=== PATIENT | female | born 1990 | race African-American/Black ===

== ENCOUNTER 2019-05-12 19:30 | Emergency (ER) | payer SELFPAY ==
[~2019-05-12] VITALS: Ht 167.6 cm; Wt 75.0 kg
[2019-05-12] MEDS ORDERED: HYDROCODONE/ACETAMINOPHEN 5/325MG TABLET PO ONE (23:15)
[2019-05-12] MEDS ORDERED: LIDOCAINE HCL 2%/EPINEPHRINE/PF 10 ML VIAL INFIL ONE (23:15)
[2019-05-12 23:42] VITALS: BP 136/94
[2019-05-13] MEDS ORDERED: CLINDAMYCIN HCL 150MG CAPSULE PO STA (00:40)
== END 2019-05-13 01:02 | disposition home or self-care (01) ==
LOC: ER 19:30
DX: L02.31 Cutaneous abscess of buttock (principal); K61.1 Rectal abscess; F17.200 Nicotine dependence, unspecified, uncomplicated; F12.10 Cannabis abuse, uncomplicated
CPT/HCPCS: 10060; 87070; 87077; 87186; 87205; 99283; J3490; Z7610

== ENCOUNTER 2022-08-26 20:37 | Observation (INO) | payer MEDICAID ==
[~2022-08-26] VITALS: Ht 167.6 cm; Wt 91.6 kg
[2022-08-28] MEDS ORDERED: QUET25TA MT (06:03)
[2022-08-28] MEDS ORDERED: QUET200T MT (18:21)
== END 2022-08-27 00:45 | disposition left against medical advice (07) ==
LOC: 8 EST LDRP 20:37
PROVIDERS: ADMIT Obstetrics & Gynecology; ATTEND Obstetrics & Gynecology
DX: O26.893 Other specified pregnancy related conditions, third trimester (principal); R10.9 Unspecified abdominal pain; Z3A.38 38 weeks gestation of pregnancy
CPT/HCPCS: 59025; 76805; 76818; G0378; 99281

== ENCOUNTER 2022-08-27 18:16 | Inpatient (IN) | payer MEDICAID, OTHER ==
[~2022-08-27] VITALS: Ht 168.9 cm; Wt 91.6 kg
[2022-08-27] MEDS ORDERED: NALOXONE HCL 0.4 MG/ML 1ML VIAL IM PRN (19:15)
[2022-08-27] MEDS ORDERED: DEXT 5%/LACTATED RINGERS 1,000 ML IV SCH (19:15)
[2022-08-27] MEDS ORDERED: MISOPROSTOL 100MCG TABLET VG SCH (19:15)
[2022-08-27] MEDS ORDERED: BUTORPHANOL TARTRATE 2 MG/ML VIAL IV PRN (19:15)
[2022-08-27] MEDS ORDERED: LIDOCAINE HCL 1% 20ML VIAL (Pyxis) INJ INFIL SCH (19:15)
[2022-08-27] MEDS ORDERED: RHO(D) IMMUNE GLOBULIN 300 MCG/SYR IM PRN (19:15)
[2022-08-27] MEDS ORDERED: PENICILLIN G POTASSIUM 5 MMU in DEXT 5% WATER 100 ML IV SCH (20:00)
[2022-08-27] MEDS ORDERED: ALBUTEROL 6.7GM HFA INHALER ORI PRN (20:30)
[2022-08-27] MEDS ORDERED: ROPIVACAINE HCL/PF EPIDURAL 200 ML EPI SCH (20:30)
[2022-08-27 20:52] LABS: BASOPHILS % 0.7 % (0.0-2.0); EOSINOPHILS % 0.7 % (0.0-5.0); HEMATOCRIT. 30.5 % (36.0-48.0); HEMOGLOBIN. 10.5 g/dL (12.0-16.0); LYMPHOCYTES % 20.4 % (20.0-50.0); MEAN CORPUSCULAR HEMOGLOBIN 30.3 pg (28.0-32.0); MEAN CORPUSCULAR VOLUME 87.9 fL (81.0-99.0); MEAN PLATELET VOLUME 8.8 fl (7.4-10.4); MONOCYTES % 4.2 % (2.0-8.0); PLATELET 318 x1000/uL (130-400); RED BLOOD CELL COUNT 3.47 mill/uL (4.2-5.4)
[2022-08-27 20:56] LABS: INR 0.9; PARTIAL THROMBOPLASTIN TIME 24.3 sec (23.4-31.0); PROTHROMBIN TIME 9.7 sec (9.6-11.0)
[2022-08-27] MEDS: OXYTOCIN 30 UNITS/500ML NS PMX 500 ML IV SCH (21:08)
[2022-08-27] MEDS: LACTATED RINGERS 1,000 ML IV SCH (21:09)
[2022-08-27 21:42] LABS: HEPATITIS B SURFACE ANTIGEN NEGATIVE
[2022-08-27 22:52] LABS: CLARITY URINE CLEAR (CLEAR); COLOR URINE YELLOW (YELLOW); KETONES URINE TRACE (NEGATIVE); LEUKOCYTE ESTERASE URINE NEGATIVE (NEGATIVE); NITRITE URINE NEGATIVE (NEGATIVE); OCCULT BLOOD URINE NEGATIVE (NEGATIVE); PH URINE 6.5 (4.5-8.0); PROTEIN URINE NEGATIVE (NEGATIVE); SPECIFIC GRAVITY URINE 1.008 (1.005-1.030); UROBILINOGEN URINE 0.2 E.U./dL (0.2-1.0)
[2022-08-27 23:07] LABS: *AMPHETAMINES SCREEN URINE NEGATIVE (NEGATIVE); *BARBITURATES SCREEN URINE NEGATIVE (NEGATIVE); *BENZODIAZEPINES SCREEN URINE NEGATIVE (NEGATIVE); *COCAINE SCREEN URINE NEGATIVE (NEGATIVE); METHADONE URINE SCREEN NEGATIVE (NEGATIVE); OPIATES URINE SCREEN NEGATIVE (NEGATIVE); PHENCYCLIDINE URINE SCREEN NEGATIVE (NEGATIVE)
[2022-08-27 23:13] LABS: CANNABINOID URINE SCREEN PRESUMTIVE POSITIVE (NEGATIVE)
[2022-08-28] MEDS ORDERED: PENICILLIN G POTASSIUM 2.5 MMU in DEXTROSE 5% WATER 50 ML IV SCH ×2
[2022-08-28] MEDS: LACTATED RINGERS 1,000 ML IV SCH (00:31)
[2022-08-28] MEDS ORDERED: QUET25TA MT (06:03)
[2022-08-28] MEDS ORDERED: FENTANYL CITRATE/PF 50MCG/ML 2ML VIAL ONE (06:32)
[2022-08-28] MEDS: OXYTOCIN 30 UNITS/500ML NS PMX 500 ML IV SCH (11:16)
[2022-08-28] MEDS ORDERED: METHYLERGONOVINE MALEATE 0.2 MG/ML IM PRN (11:30)
[2022-08-28] MEDS ORDERED: BISACODYL 10MG SUPP PR PRN (11:30)
[2022-08-28] MEDS ORDERED: RHO(D) IMMUNE GLOBULIN 300 MCG/SYR IM PRN (11:30)
[2022-08-28] MEDS ORDERED: OXYTOCIN 30 UNITS/500ML NS PMX 500 ML IV SCH (11:30)
[2022-08-28] MEDS ORDERED: DIPHENHYDRAMINE 25MG CAPSULE PO PRN (11:30)
[2022-08-28] MEDS ORDERED: IBUPROFEN 400MG TABLET PO PRN (11:30)
[2022-08-28] MEDS ORDERED: HEMORRHOIDAL SUPP PR PRN (11:30)
[2022-08-28] MEDS ORDERED: LANOLIN OINT 7GM TUBE TOP PRN (11:30)
[2022-08-28] MEDS ORDERED: GLYCERIN/WITCH HAZEL LEAF MEDICATED PAD TOP PRN (11:30)
[2022-08-28] MEDS ORDERED: BENZOCAINE/LANOLIN/ALOE VERA SPRAY TOP PRN (11:30)
[2022-08-28] MEDS ORDERED: IBUPROFEN 800MG TABLET PO PRN (11:30)
[2022-08-28 12:30] VITALS: BP 131/84
[2022-08-28] MEDS: ACETAMINOPHEN WITH CODEINE 300/30MG TABLET PO PRN ×2 (13:41→21:09)
[2022-08-28] MEDS: SIMETHICONE 80MG TABLET CHEW PO SCH ×3 (13:47→21:07)
[2022-08-28] MEDS: MAGNESIUM/ALUMINUM HYDROXIDE/SIMETHICONE 30ML UDC PO SCH ×3 (13:48→21:07)
[2022-08-28 14:00] VITALS: BP 130/75
[2022-08-28] MEDS ORDERED: QUET200T MT (18:21)
[2022-08-28 20:00] VITALS: BP 139/41
[2022-08-28] MEDS ORDERED: QUETIAPINE FUMARATE 50MG TABLET PO SCH (21:00)
[2022-08-28] MEDS ORDERED: DOCUSATE SODIUM 100MG CAPSULE PO SCH (21:00)
[2022-08-29] MEDS: ACETAMINOPHEN WITH CODEINE 300/30MG TABLET PO PRN ×2 (03:22→08:46)
[2022-08-29 04:06] VITALS: BP 123/87
[2022-08-29 06:50] LABS: BASOPHILS % 0.1 % (0.0-2.0); EOSINOPHILS % 0.4 % (0.0-5.0); HEMATOCRIT. 27.2 % (36.0-48.0); MEAN CORPUSCULAR HEMOGLOBIN 29.3 pg (28.0-32.0); MEAN CORPUSCULAR VOLUME 88.4 fL (81.0-99.0); MEAN PLATELET VOLUME 8.6 fl (7.4-10.4); MONOCYTES % 5.8 % (2.0-8.0); NEUTROPHILS % 84.7 % (40.0-76.0); PLATELET 250 x1000/uL (130-400); RED BLOOD CELL COUNT 3.08 mill/uL (4.2-5.4); RED CELL DISTRIBUTION WIDTH 13.7 % (11.6-14.6)
[2022-08-29 08:00] VITALS: BP 114/78
[2022-08-29] MEDS: SIMETHICONE 80MG TABLET CHEW PO SCH ×2 (08:00→13:00)
[2022-08-29] MEDS: MAGNESIUM/ALUMINUM HYDROXIDE/SIMETHICONE 30ML UDC PO SCH ×2 (08:45→12:30)
[2022-08-29] MEDS: FERROUS SULFATE 325MG TABLET PO SCH ×2 (08:45→12:30)
[2022-08-29] MEDS ORDERED: PRENATAL VIT/FE FUMARATE/FA TABLET PO SCH (09:00)
[2022-08-29] MEDS ORDERED: IBUP-2029 MT (09:53)
[2022-08-29 13:35] LABS: HEMATOCRIT 29.1 % (36.0-48.0); HEMOGLOBIN 9.8 g/dL (12.0-16.0); MEAN CORPUSCULAR HEMOGLOBIN 29.7 pg (28.0-32.0); PLATELET 281 x1000/uL (130-400); RED BLOOD CELL COUNT 3.31 mill/uL (4.2-5.4)
== END 2022-08-29 15:35 | disposition home or self-care (01) | DRG 560 ==
LOC: 8 EST LDRP 18:16 → OBSVTOIN 18:16 → 8EST 08-28 12:47
PROVIDERS: ADMIT Obstetrics & Gynecology; ATTEND Obstetrics & Gynecology
PROC: 10E0XZZ Delivery of Products of Conception, External Approach (ICD-10-PCS; principal; 2022-08-28)
PROC: 3E0R3BZ Introduction of Anesthetic Agent into Spinal Canal, Percutaneous Approach (ICD-10-PCS; 2022-08-28)
PROC: 00HU33Z Insertion of Infusion Device into Spinal Canal, Percutaneous Approach (ICD-10-PCS; 2022-08-28)
DX: O99.02 Anemia complicating childbirth (principal); Z37.0 Single live birth; D62 Acute posthemorrhagic anemia; O69.81X0 Labor and delivery complicated by cord around neck, without compression, not applicable or unspecified; O99.13 Other diseases of the blood and blood-forming organs and certain disorders involving the immune mechanism complicating the puerperium; D72.829 Elevated white blood cell count, unspecified; O99.344 Other mental disorders complicating childbirth; F32.A Depression, unspecified; Z3A.39 39 weeks gestation of pregnancy; Z20.822 Contact with and (suspected) exposure to COVID-19; Z79.899 Other long term (current) drug therapy
CPT/HCPCS: 36415; 80305; 80349; 81003; 85025; 85027; 86592; 86703; 86762; 86850; 86900; 87340; 87426; 99281; G0378; J2540; J2795; J3010; J7060; A4315; J2590

== ENCOUNTER 2023-03-08 10:15 | Emergency (ER) | payer OTHER ==
[~2023-03-08] VITALS: Ht 167.6 cm; Wt 78.0 kg
[~2023-03-08 10:15] MED LIST: IBUP-2029 MT; QUET200T MT
[2023-03-08 10:26] VITALS: BP 160/94
== END 2023-03-08 10:40 | disposition left against medical advice (07) ==
LOC: ER 10:26
DX: R10.9 Unspecified abdominal pain (principal); Z53.21 Procedure and treatment not carried out due to patient leaving prior to being seen by health care provider
CPT/HCPCS: 99281